=== PATIENT | female | born 1985 | race Hispanic/Latino ===

== ENCOUNTER → 2025-07-17 | Emergency (ER) | payer OTHER ==
[~2025-07-17] VITALS: Ht 165.1 cm; Wt 64.9 kg
--- NOTE | 2025-07-17 10:08 | ERN ---
General Chief Complaint: Headache Stated Complaint: HEADACHE, BLUURE VISION Time Seen by MD: 09:52 History of Present Illness Initial Comments 40-year-old female presented to the emergency department with acute right-sided headache and vision loss in the right eye. Symptom onset was on Thursday, with initial recognition of a right-sided blind spot that progressed to complete monocular blindness over several hours. The headache is localized to the right occipital region, described as constant, and began concurrently with the visual symptoms. She reports no prior history of similar episodes. On the day of onset, she also experienced transient numbness in her right arm, which resolved within the same day. No recurrence of numbness since. She denies jaw claudication, scalp tenderness, fever, weight loss, or constitutional symptoms Allergies: Coded Allergies: No Known Allergies (Unverified Allergy, Unknown, 07/17/25) Past Medical History Past Medical History: No Pertinent History Past Surgical History: None Female( History) LMP: Jul 15, 2025 Constitutional: (-) chills, (-) diaphoresis, (-) fever, (-) malaise, (-) weakness, (-) other documentation EENTM: (+) eye pain, (+) other documentation (Loss of vision in the right eye) Respiratory: (-) cough, (-) orthopnea, (-) short of breath, (-) stridor, (-) w heezing, (-) other documentation Cardiovascular: (-) chest pain, (-) edema, (-) palpitations, (-) syncope, (-) dyspnea on exertion, (-) other documentation Gastrointestinal/Abdominal: (-) nausea, (-) vomiting, (-) diarrhea, (-) abdominal pain, (-) abdominal distention, (-) constipation, (-) rectal bleeding, (-) dark stool/melena, (-) other documentation Musculoskeletal: (-) Neck pain, (-) back pain, (-) Flank Pain, (-) joint pain, (-) joint swelling, (-) muscle pain, (-) muscle stiffness, (-) gout, (-) other documentation Skin: (-) laceration, (-) contusion, (-) abrasion, (-) abscess, (-) rash, (-) change in color, (-) change in hair, (-) change in nails, (-) diaphoresis, (-) dryness, (-) other documentation Neuro: (+) headache; (-) altered mental status, (-) syncope, (-) paralysis, (-) numbness, (-) seizure, (-) pre-existing deficit, (-) tremors, (-) weakness, (-) dizziness, (-) slurred speech, (-) vertigo, (-) other documentation Psych: (-) depression, (-) suicidal ideation, (-) anxiety, (-) emotional problems, (-) auditory hallucinations, (-) visual hallucinations Results Laboratory and Microbiology Lab and Micro Result Laboratory Tests Test 07/17/25 10:10 White Blood Count 6.4 K/uL (4.8-10.8) Red Blood Count 4.81 MIL/uL (4.00-5.50) Hemoglobin 10.1 g/dL (12.0-16.0) L Hematocrit 32.5 % (36-48) L Mean Corpuscular Volume 67.6 fL (79-99) L Mean Corpuscular Hemoglobin 21.0 pg (27.0-33.0) L Mean Corpuscular Hemoglobin Concent 31.1 g/dL (32.0-36.0) L Red Cell Distribution Width 17.0 % (11.0-15.5) H Platelet Count 501 K/uL (130-400) H Mean Platelet Volume 9.0 fL (7.5-10.5) Immature Granulocyte % (Auto) 0.3 % (0-1) Neutrophils (%) (Auto) 60.8 % (40.0-77.0) Lymphocytes (%) (Auto) 29.8 % (21.0-51.0) Monocytes (%) (Auto) 6.9 % (3.0-13.0) Eosinophils (%) (Auto) 1.4 % (0.0-8.0) Basophils (%) (Auto) 0.8 % (0.0-5.0) Neutrophils # (Auto) 3.9 K/uL (1.8-7.7) Lymphocytes # (Auto) 1.9 K/uL (1.0-4.8) Monocytes # (Auto) 0.4 K/uL (0.1-1.0) Eosinophils # (Auto) 0.09 K/uL (0.00-0.70) Basophils # (Auto) 0.05 K/uL (0.00-0.20) Absolute Immature Granulocyte (auto 0.02 K/uL (0-1) Nucleated Red Blood Cells 0.0 % (0.0-0.19) Red Blood Cell Morphology See comments Erythrocyte Sedimentation Rate 26 MM/HR (0-20) H Prothrombin Time 10.2 SEC (9.6-11.6) Prothromb Time International Ratio 0.96 (0.85-1.15) Activated Partial Thromboplast Time 25.8 SEC (26.3-35.5) L Sodium Level 139 mmol/L (136-145) Potassium Level 3.7 mmol/L (3.5-5.1) Chloride Level 103 mmol/L (101-111) Carbon Dioxide Level 26 mmol/L (21-32) Blood Urea Nitrogen 9 mg/dL (7-18) Creatinine 0.7 mg/dL (0.5-1.0) Glomerular Filtration Rate Calc 113 mL/min (>90) Random Glucose 90 mg/dL (70-105) Total Calcium 8.9 mg/dL (8.5-10.1) C-Reactive Protein, Quantitative 4.70 mg/L (0.5-3.0) H MDM Patient will be transferred to [facility] for neurological evaluation. ED Course Orders Procedure Category Date Status Time Ct Head/Brain W/O CT 07/17/25 Resulted Contrast 10:02 Cbc With Differential LAB 07/17/25 Complete 10:02 Basic Metabolic Panel LAB 07/17/25 Complete 10:02 Erythrocyte Sed Rate LAB 07/17/25 Complete 10:02 Crp Quantitative LAB 07/17/25 Complete 10:02 Morphine 2mg Syg PHA 07/17/25 Complete (Morphine 2mg Syg) 10:30 Morphine 2mg Syg PHA 07/17/25 Complete (Morphine 2mg Syg) 11:00 Pt And Ptt LAB 07/17/25 Complete 11:30 Ketorolac PHA 07/17/25 Complete Tromethamine 30mg/Ml 12:30 Current Medications Medications (Trade) Dose Ordered Sig/Randy Route PRN Reason Start Time Stop Time Status Last Admin Dose Admin Ketorolac Tromethamine (toRADol) 30 mg ONCE ONCE IVP 07/17/25 12:30 07/17/25 12:31 DC 07/17/25 12:44 Morphine Sulfate (morPHINE 2MG SYG) 2 mg ONCE ONCE IM 07/17/25 10:30 07/17/25 10:47 DC Morphine Sulfate (morPHINE 2MG SYG) 2 mg ONCE ONCE IVP 07/17/25 11:00 07/17/25 11:01 DC 07/17/25 10:50 Vital Signs Date Time Temp Pulse Resp B/P (MAP) Pulse Ox O2 Delivery O2 Flow Rate FiO2 07/17/25 13:37 97.9 69 16 130/84 100 Room Air* 0 21 07/17/25 10:13 97.5 68 12 138/87 100 Room Air* 0 21 07/17/25 09:52 98.2 71 16 129/85 100 Room Air 0 DX & DISP Disposition: Transfer Departure Impression: Primary Impression: Vision loss Additional Impression: Headache Condition: Stable Referrals: SELF,REFERRAL (PCP) ROMERO HERBERT MD Jul 17, 2025 10:08 MARY APARICIO MD Jul 17, 2025 14:39
[2025-07-17 10:20] LABS: IMMATURE GRANULOCYTE ABSOLUTE 0.02 K/uL (0-1); NUCLEATED RED BLOOD CELLS 0.0 % (0.0-0.19); PLATELET COUNT (AUTO) 501 K/uL (130-400); RED BLOOD CELL COUNT(AUTO) 4.81 MIL/uL (4.00-5.50); RED CELL DISTRIBUTION WIDTH 17.0 % (11.0-15.5); WHITE BLOOD COUNT (AUTO) 6.4 K/uL (4.8-10.8)
[2025-07-17 11:13] LABS: CREATININE 0.7 mg/dL (0.5-1.0); GLOMERULAR FILTR. RATE CALC 113.0 mL/min (>90); GLUCOSE,RANDOM 90.0 mg/dL (70-105); SODIUM SERUM 139.0 mmol/L (136-145); UREA NITROGEN, BLOOD 9.0 mg/dL (7-18)
[2025-07-17 11:22] LABS: ERYTHROCYTE SEDIMENTATION RATE 26 MM/HR (0-20)
[2025-07-17 12:01] LABS: INR 0.96 (0.85-1.15)
--- NOTE | 2025-07-17 12:08 | HMCIMG ---
EXAM: CT Head Without IV contrast. CLINICAL HISTORY: Headache and right sided vision loss TECHNIQUE: Axial computed tomography images of the head/brain without intravenous contrast. COMPARISON: None provided. FINDINGS: BRAIN: No evidence of acute hemorrhage. No mass lesion. No CT evidence for acute territorial infarct. No midline shift or extra-axial collections. VENTRICLES: No hydrocephalus. ORBITS: The orbits are unremarkable. SINUSES AND MASTOIDS: The paranasal sinuses and mastoid air cells are clear. BONES: No fracture. SOFT TISSUES: Unremarkable. IMPRESSION: No acute intracranial abnormality. /Worth
--- NOTE | 2025-07-17 13:45 | NUR ---
TRANSFER REQUEST FOR NUROLOGY SERVICE. DEMETRIUS SANTOS
--- NOTE | 2025-07-17 14:00 | NUR ---
TRANSFER MET WITH ER DOCTOR FOR MOT AND DX FOR TRANSFER. DEMETRIUS SANTOS
--- NOTE | 2025-07-17 14:15 | NUR ---
TRANSFER INITIATED TO [facility] [phone] SPOKE WITH MATT INTAKE NURSE INFORMATION PROVIDED WILL AWAIT CALL BACK. DEMETRIUS SANTOS
--- NOTE | 2025-07-17 15:18 | NUR ---
TRANSFER CALL BACK WITH ACCEPTANCE UNDER DR AMITA FLORES TO ROOM [id number] AND PRIMARY TO CALL REPORT TO [phone] AND EMS WHEN READY. DEMETRIUS SANTOS
--- NOTE | 2025-07-17 15:40 | NUR ---
CALLED [facility] SPOKE TO MAYCOL SANTOS, STATED HE WOULD CALL ME BACK "BECAUSE DRS ARE ROUNDING" PATIENT RESTING IN BED, CALL LIGHT IN REACH
--- NOTE | 2025-07-17 16:09 | NUR ---
SPOKE TO KIERRA FROM EMS FOR TRANSFER OF PATIENT, EMS FORMS FAXED
--- NOTE | 2025-07-17 16:22 | NUR ---
CALLED AND SPOKE TO MAYCOL SANTOS FROM [facility], REPORT GIVEN FOR TRANSFER
[2025-07-17 17:01] VITALS: BP 124/77; PULSE 74; RESP 16; TEMP 98; O2SAT 100
--- NOTE | 2025-07-17 17:01 | NUR ---
EMS ARRIVED FOR PATIENT, NO COMPLICATIONS
== END ==
LOC: EDH 09:50
DX: H54.7 Unspecified visual loss (principal); R51.9 Headache, unspecified
CPT/HCPCS: 99285; 96374; 70450; 96375; 80048; 85025; 85610; 85730; 85651; 86140; 36415; J1885; J2270